=== PATIENT | male | born 1985 | race Caucasian/White ===

== ENCOUNTER 2016-10-14 12:47 | Day surgery (SDC) | payer OTHER ==
[~2016-10-14] VITALS: Ht 175.3 cm; Wt 87.4 kg
--- NOTE | ~2016-10-14 | OR ---
ADMIT: 10/14/2016 RM/LOC: [facility] MR#: [id number] [facility]#: [id number] [address] [address] EMANUEL ROCHA [address] [place] [address] Operative/Delivery Room Report SEX: M AGE: 31 : 1985 SURGERY DATE: 10/14/2016 SURGEON: Andre Pierson MD PREOPERATIVE DIAGNOSIS: Acute appendicitis. POSTOPERATIVE DIAGNOSIS: Acute appendicitis. PROCEDURE: Laparoscopic appendectomy. ANESTHESIA: General. ESTIMATED BLOOD LOSS: 10 mL. DESCRIPTION OF PROCEDURE: The patient was taken to the operating room and placed supine on the operating room table. General anesthesia was established. The abdomen was prepped and draped in the standard surgical fashion. A 5 mm infraumbilical incision was made in the skin. The fascia was grasped with Srikanth clamp, and a Veress needle was advanced into the peritoneal cavity. Carbon dioxide was used to insufflate the abdomen to 15 mmHg pressure. The Veress needle was withdrawn, and a 5 mm Optiview trocar was placed. Next, a 5 mm suprapubic port and a 12 mm left lower quadrant port were placed under visualization. The terminal ileum was adhesed over the inflamed appendix. This was mobilized from its inflammatory adhesions. The mesoappendix was divided with Harmonic Scalpel to the base of the appendix. This was skeletonized at the cecum and divided at the cecum with an [place] 45 mm 3.5 mm staple load. The appendix was placed in an EndoCatch bag and removed through the left lower quadrant port site. Inspection of the right lower quadrant revealed the staple line intact with no evidence of bleeding. The ports were removed under visualization without evidence of bleeding. The fascial margin at the 12 mm port site was approximated with 0 Vicryl suture and the suture passer. The abdomen was allowed to deflate. Skin edges were approximated with 4-0 Monocryl in a subcuticular fashion and Dermabond. Local anesthetic was injected at the incisions. Sponge, needle, and instrument counts were correct at the end of the case. The patient tolerated the procedure well and transferred to the recovery area in stable condition. Andre Pierson MD/ august JOB #: [id number] CC: Andre Pierson, Attending Physician Abilio Powell, Family Physician
--- NOTE | 2016-10-20 20:44 | HP ---
ADMIT: 10/14/2016 RM/LOC: [facility] MR#: [id number] [address] [address] BENJAMIN ROCHA [address] [place] [address] History and Physical SEX: M AGE: 31 : 1985 DATE OF SERVICE: HISTORY OF PRESENT ILLNESS: This is a 31-year-old male seen for Dr. Ryan Powell with complaints of right lower quadrant abdominal pain. This started 24 hours ago and worsened in severity prompting a visit to his office today. He ordered a CT scan after finding a leukocytosis on laboratory study and tenderness in the right lower quadrant. CT scan confirmed appendicitis as his diagnosis. PAST MEDICAL HISTORY: No chronic illnesses. CURRENT MEDICATIONS: Multivitamin. ALLERGIES: NO KNOWN MEDICAL ALLERGIES. PAST SURGICAL HISTORY: None. FAMILY HISTORY: Noncontributory. REVIEW OF SYSTEMS: A 10-point review of systems is performed. Abdominal pain as listed above, and the remainder of the review of systems is negative for recent change. PHYSICAL EXAMINATION: GENERAL: Benjamin is alert, oriented, and in no acute distress. VITAL SIGNS: He is currently afebrile, and his vital signs are stable. Cranial nerves are grossly intact. HEENT: Sclerae appear anicteric. NECK: Supple without lymphadenopathy. LUNGS: Clear to auscultation bilaterally. HEART: Regular rate and rhythm. ABDOMEN: Tender to palpation of the right lower quadrant with rebound and guarding at McBurney point. EXTREMITIES: Neurovascularly intact x4. IMPRESSION: Acute appendicitis. PLAN: I have recommended proceeding with laparoscopic appendectomy. I discussed risks of that with Benjamin, and he does wish to proceed. Andre Pierson MD/ august JOB #: [id number] CC: Andre Pierson, Attending Physician Abilio Powell, Family Physician
== END 2016-10-14 18:38 | disposition home or self-care (01) ==
LOC: SSS 12:47
PROC: 0DTJ4ZZ Resection of Appendix, Percutaneous Endoscopic Approach (ICD-10-PCS; principal; 2016-10-14)
DX: K35.80 Unspecified acute appendicitis (principal); Z98.890 Other specified postprocedural states

== ENCOUNTER 2016-11-11 15:35 | Emergency (ER) | payer OTHER ==
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
== END 2016-11-11 16:47 | disposition home or self-care (01) ==
LOC: ER 15:35
PROC: 2W2FX4Z Dressing of Left Hand using Bandage (ICD-10-PCS; principal; 2016-11-11)
DX: T23.232A Burn of second degree of multiple left fingers (nail), not including thumb, initial encounter (principal); T23.201A Burn of second degree of right hand, unspecified site, initial encounter; Z90.49 Acquired absence of other specified parts of digestive tract; X12.XXXA Contact with other hot fluids, initial encounter; Y92.009 Unspecified place in unspecified non-institutional (private) residence as the place of occurrence of the external cause